=== PATIENT | male | born 1970 | race Caucasian/White ===

== ENCOUNTER → 2021-06-20 | Outpatient (CLI) | payer OTHER | LOC: COL.VAS 12:26 | DX: J90 Pleural effusion, not elsewhere classified (principal) ==

== ENCOUNTER → 2022-03-26 | Outpatient (CLI) | payer OTHER | LOC: MHCPAIN 08:56 | DX: M47.812 Spondylosis without myelopathy or radiculopathy, cervical region (principal); M54.2 Cervicalgia; M54.12 Radiculopathy, cervical region; G89.29 Other chronic pain | CPT/HCPCS: G0463 ==

== ENCOUNTER → 2022-07-31 | Outpatient (CLI) | payer OTHER | LOC: MHCPAIN 12:06 | DX: M47.812 Spondylosis without myelopathy or radiculopathy, cervical region (principal); M54.12 Radiculopathy, cervical region | CPT/HCPCS: J1040; Q9967 ==